=== PATIENT | female | born 1985 | race Caucasian/White ===

== ENCOUNTER → 2022-12-22 08:11 | Outpatient (REF) | payer BC, SELFPAY | LOC: PNTC 08:11 | PROVIDERS: ATTENDING PHYSICIAN Obstetrics & Gynecology | DX: O09.523 Supervision of elderly multigravida, third trimester (principal); Z29.13 Encounter for prophylactic Rho(D) immune globulin | CPT/HCPCS: 36415; 86850; 86900; 86901; J2790 ==

== ENCOUNTER → 2024-10-31 13:13 | Outpatient (REF) | payer BC, SELFPAY | LOC: PNTC 13:13 | PROVIDERS: ATTENDING PHYSICIAN Obstetrics & Gynecology | DX: Z34.90 Encounter for supervision of normal pregnancy, unspecified, unspecified trimester (principal) | CPT/HCPCS: 36415; 86850; 86900; 86901; 96372; J2790 ==

== ENCOUNTER 2025-01-13 09:15 | Inpatient (IN) | payer BC, SELFPAY ==
[2025-01-13] MEDS: LR 1000 IV ×3 (09:45→14:43)
[2025-01-13 09:54] LABS: Hematocrit 33.7 % (37.0-47.0); Hemoglobin 11.2 g/dL (12.0-16.0); Mean Corp Hgb Conc. 33.2 g/dL (33.0-37.0); Mean Corpuscular Volume 84.9 fL (81.0-99.0); Platelet Count 171 10^3/uL (130-400); Red Cell Dist. Width 14.3 % (11.5-14.5)
[2025-01-13 10:02] VITALS: BP 118/73; BMI 29.9
[2025-01-13] MEDS: TYLENOL 975 MG PO (10:41)
[2025-01-13] MEDS: ANCEF 10 IV (10:42)
[2025-01-13] MEDS: BICITRA 30 ML PO (10:42)
[2025-01-13] MEDS: PITOCIN 30 UNITS/NSS 500 ML IV (14:56)
[2025-01-13] MEDS: TORADOL 15 MG IV ×2 (14:57→20:37)
[2025-01-13] MEDS: COLACE 100 MG PO (20:37)
[2025-01-13] MEDS: PRENATAL PLUS 1 TABLET PO (20:38)
[2025-01-14] MEDS: TORADOL 15 MG IV ×2 (03:05→08:53)
[2025-01-14 03:52] LABS: Hematocrit 30.7 % (37.0-47.0); Hemoglobin 10.3 g/dL (12.0-16.0); Mean Corp Hgb Conc. 33.6 g/dL (33.0-37.0); Mean Corpuscular Volume 85.0 fL (81.0-99.0); Platelet Count 166 10^3/uL (130-400); Red Cell Dist. Width 14.1 % (11.5-14.5)
[2025-01-14] MEDS: COLACE 100 MG PO ×2 (08:53→20:35)
[2025-01-14] MEDS: FEOSOL 325 MG PO (08:53)
[2025-01-14] MEDS: TYLENOL 650 MG PO ×2 (13:02→22:00)
[2025-01-14] MEDS: RHOGAM 300 MCG IM (13:02)
[2025-01-14 15:09] LABS: Syphilis/T. pallidum Ab Reflex Negative (Negative)
[2025-01-14] MEDS: MOTRIN 600 MG PO ×2 (16:13→22:00)
[2025-01-14] MEDS: PRENATAL PLUS 1 TABLET PO (20:35)
[2025-01-15] MEDS: TYLENOL 650 MG PO ×2 (06:07→12:33)
[2025-01-15] MEDS: MOTRIN 600 MG PO ×2 (06:08→12:33)
[2025-01-15] MEDS: FEOSOL 325 MG PO (08:34)
[2025-01-15] MEDS: COLACE 100 MG PO (08:34)
== END 2025-01-15 14:10 | disposition home or self-care (01) | DRG 785 ==
LOC: LDRP 09:15
PROVIDERS: ADMITTING PHYSICIAN Obstetrics & Gynecology
PROC: 0UB70ZZ Excision of Bilateral Fallopian Tubes, Open Approach (ICD-10-PCS; 2025-01-13)
PROC: 10D00Z1 Extraction of Products of Conception, Low, Open Approach (ICD-10-PCS; 2025-01-13)
PROC: 3E0334Z Introduction of Serum, Toxoid and Vaccine into Peripheral Vein, Percutaneous Approach (ICD-10-PCS; 2025-01-14)
DX: O34.211 Maternal care for low transverse scar from previous cesarean delivery (principal); N85.8 Other specified noninflammatory disorders of uterus; Z3A.39 39 weeks gestation of pregnancy; Z37.0 Single live birth; O26.893 Other specified pregnancy related conditions, third trimester; Z67.11 Type A blood, Rh negative; Z30.2 Encounter for sterilization; Z86.16 Personal history of COVID-19
CPT/HCPCS: 58605; 85027; 85461; 86780; 86850; 86870; 86900; 86901; 88302; J2790